=== PATIENT | female | born 1955 | race African-American/Black ===

== ENCOUNTER 2023-04-17 11:19 | Observation (INO) | payer OTHER ==
[2023-04-17] MEDS ORDERED: SODIUM CHLORIDE 0.9% 500 ML INFUS.BAG IV ONE (13:03)
[2023-04-17 13:17] LABS: HEMATOCRIT 32.7 % (32.4-45.2); HEMOGLOBIN 10.7 GM/dL (10.7-15.3); MCH 32.5 pg (25.7-33.7); MCHC 32.9 g/dl (32.0-36.0); MEAN CELL VOLUME 98.8 fl (80-96); MEAN PLT VOLUME 7.8 fl (7.5-11.1); PLATELET COUNT 423 10^3/uL (134-434); RDW 14.8 % (11.6-15.6); WHITE BLOOD COUNT 6.2 K/mm3 (4.0-10.0)
[2023-04-17 13:40] LABS: EPI CELLS 22 /uL (0-25.1); HYALINE CASTS 1 /uL (0-3.1); PH,URINE 6.5 (5.0-8.0); URINE APPEARANCE CLEAR; URINE BACTERIA 45 /uL (0-1359); URINE BILIRUBIN NEGATIVE (NEGATIVE); URINE COLOR YELLOW; URINE GLUCOSE (UA) NEGATIVE (NEGATIVE); URINE KETONE NEGATIVE (NEGATIVE); URINE LEUK ESTERASE TRACE (NEGATIVE); URINE NITRITE NEGATIVE (NEGATIVE); URINE PROTEIN NEGATIVE (NEGATIVE); URINE RBC 10 /uL (0-23.9); URINE UROBILINOGEN 0.2 mg/dL (0.2-1.0); URINE WBC 23 /uL (0-25.8)
[2023-04-17 13:48] LABS: POTASSIUM 4.8 mmol/L (3.5-5.1)
[2023-04-17 13:49] LABS: ALBUMIN 2.7 g/dl (3.4-5.0); BLOOD UREA NITROGEN 28.2 mg/dL (7-18); CALCIUM 9.2 mg/dL (8.5-10.1)
[2023-04-17 13:53] LABS: CREATININE 1.5 mg/dL (0.55-1.3)
[2023-04-17 13:54] LABS: BILIRUBIN,TOTAL 0.9 mg/dL (0.2-1); TOT PROT 8.4 g/dl (6.4-8.2)
[2023-04-17 13:57] LABS: N-TERMINAL BNP 593.3 pg/ml (5-125)
[2023-04-17 14:22] LABS: ANISOCYTOSIS 0; HELMET CELLS 0; HOWELL-JOLLY BODIES 0; MACROCYTOSIS 0; OVALOCYTE 0; ROULEAU 0; SICKELED CELLS 0; TARGET CELLS 0; TEAR DROP CELLS 0; TOXIC GRANULATION 0
[2023-04-17] MEDS ORDERED: MECLIZINE HCL 25 MG TABLET (FP) PO PRN (19:00)
[2023-04-17] MEDS ORDERED: SODIUM CHLORIDE 1,000 ML IV SCH (19:15)
[2023-04-17] MEDS ORDERED: PANTOPRAZOLE 20 MG TABLET PO ONE ×2 (20:32→20:33)
[2023-04-17] MEDS ORDERED: HEPARIN NA (PORCINE) 5,000 UNITS/ML 1ML VIAL ONE (20:33)
[2023-04-17] MEDS ORDERED: levETIRAcetam 500 MG TABLET (FP) PO ONE ×2 (20:33→20:35)
[2023-04-17] MEDS ORDERED: hydrALAZINE HCL 25 MG TABLET (FP) ONE (20:33)
[2023-04-17] MEDS: hydrALAZINE HCL 25 MG TABLET (FP) PO SCH (21:00)
[2023-04-17] MEDS: PANTOPRAZOLE 20 MG TABLET PO SCH (21:00)
[2023-04-17] MEDS: HEPARIN NA (PORCINE) 5,000 UNITS/ML 1ML VIAL SQ SCH (21:00)
[2023-04-17] MEDS: levETIRAcetam XR 500 MG TAB PO SCH (21:00)
[2023-04-17] MEDS: INSULIN (NOVOLOG) ASPART 100 UNITS/ML 10ML VIAL SQ SCH (22:24)
[2023-04-18] MEDS ORDERED: MELATONIN 1 MG TABLET PO PRN (01:06)
[2023-04-18] MEDS ORDERED: MELATONIN 5 MG TABLETS ONE (01:14)
[2023-04-18 05:34] VITALS: BMI 26.8
[2023-04-18] MEDS: HEPARIN NA (PORCINE) 5,000 UNITS/ML 1ML VIAL SQ SCH ×2 (06:10→13:49)
[2023-04-18] MEDS: INSULIN (NOVOLOG) ASPART 100 UNITS/ML 10ML VIAL SQ SCH ×2 (06:10→12:25)
[2023-04-18 07:31] LABS: HEMATOCRIT 29.2 % (32.4-45.2); HEMOGLOBIN 9.8 GM/dL (10.7-15.3); MCH 33.4 pg (25.7-33.7); MCHC 33.6 g/dl (32.0-36.0); MEAN CELL VOLUME 99.4 fl (80-96); MEAN PLT VOLUME 8.2 fl (7.5-11.1); PLATELET COUNT 382 10^3/uL (134-434); RBC 2.94 M/mm3 (3.60-5.2); RDW 14.4 % (11.6-15.6); WHITE BLOOD COUNT 6.2 K/mm3 (4.0-10.0)
[2023-04-18 07:57] LABS: POTASSIUM 4.1 mmol/L (3.5-5.1)
[2023-04-18 08:01] LABS: ALBUMIN 2.5 g/dl (3.4-5.0); BLOOD UREA NITROGEN 23.1 mg/dL (7-18); CALCIUM 9.1 mg/dL (8.5-10.1); MAGNESIUM 1.8 mg/dL (1.8-2.4)
[2023-04-18 08:04] LABS: CREATININE 1.3 mg/dL (0.55-1.3); PHOSPHOROUS 3.3 mg/dL (2.5-4.9)
[2023-04-18 08:05] LABS: BILIRUBIN,TOTAL 0.6 mg/dL (0.2-1); TOT PROT 7.4 g/dl (6.4-8.2)
[2023-04-18 09:34] LABS: ANISOCYTOSIS 1+; MACROCYTOSIS 0; TARGET CELLS 1+
[2023-04-18] MEDS: PANTOPRAZOLE 20 MG TABLET PO SCH (09:47)
[2023-04-18] MEDS: hydrALAZINE HCL 25 MG TABLET (FP) PO SCH (09:47)
[2023-04-18] MEDS ORDERED: LOSARTAN POTASSIUM 50 MG TABLET PO SCH (10:00)
[2023-04-18] MEDS: levETIRAcetam XR 500 MG TAB PO SCH (13:48)
[2023-04-18 15:31] VITALS: BP 185/94; PULSE 62; RESP 13; TEMP 98.3
== END 2023-04-18 16:20 | disposition home health service (06) ==
LOC: JER 11:19 → JERBED 22:49 → J4W 04-18 05:43
PROVIDERS: ADMIT Internal Medicine; ATTEND Internal Medicine
PROC: 3E0337Z Introduction of Electrolytic and Water Balance Substance into Peripheral Vein, Percutaneous Approach (ICD-10-PCS; principal; 2023-04-17)
DX: R42 Dizziness and giddiness (principal); R53.1 Weakness; I10 Essential (primary) hypertension; E11.9 Type 2 diabetes mellitus without complications; E78.5 Hyperlipidemia, unspecified; Z79.84 Long term (current) use of oral hypoglycemic drugs; M25.552 Pain in left hip; D72.10 Eosinophilia, unspecified; R74.01 Elevation of levels of liver transaminase levels; R79.89 Other specified abnormal findings of blood chemistry; R97.8 Other abnormal tumor markers; G40.909 Epilepsy, unspecified, not intractable, without status epilepticus
CPT/HCPCS: 0241U-QW; 36415; 70450-TC; 71045-TC-FY; 72170-TC-FY; 73502-TC-LT-FY; 80053; 81003; 82962; 83605; 83735; 83880; 84100; 84484; 85025; 86140; 87086; 87186; 93005; 93010; 97116-GP; 97162-GP; 99285-25; G0378; J1644

== ENCOUNTER 2023-07-25 09:06 | Emergency (ER) | payer OTHER, MEDICARE ==
[2023-07-25] MEDS ORDERED: LORATADINE 10 MG TABLET ONE (09:31)
[2023-07-25] MEDS ORDERED: ACETAMINOPHEN 500 MG TABLET (FP) ONE (09:31)
[2023-07-25] MEDS ORDERED: ALBUTEROL SO4 2.5/IPRATROPIUM 0.5 INH SOL 3 ML VIAL.NEB. NEB ONE (09:31)
[2023-07-25] MEDS: ACETAMINOPHEN 500 MG TABLET (FP) PO ONE (09:35)
[2023-07-25] MEDS: LORATADINE 10 MG TABLET PO ONE (09:35)
[2023-07-25] MEDS: ALBUTEROL SO4 2.5/IPRATROPIUM 0.5 INH SOL 3 ML VIAL.NEB. NEB ONE (09:38)
[2023-07-25 09:52] VITALS: BP 190/100; PULSE 80; RESP 17; TEMP 99; BMI 27.4
== END 2023-07-25 11:24 | disposition home or self-care (01) ==
LOC: FER 09:06
PROC: 3E0F7GC Introduction of Other Therapeutic Substance into Respiratory Tract, Via Natural or Artificial Opening (ICD-10-PCS; principal; 2023-07-25)
DX: R05.9 Cough, unspecified (principal); R09.81 Nasal congestion; R53.1 Weakness; Z20.822 Contact with and (suspected) exposure to COVID-19
CPT/HCPCS: 0241U-QW; 71046-TC-FY; 99284-25

== ENCOUNTER 2023-08-02 14:23 | Emergency (ER) | payer OTHER, MEDICARE ==
[2023-08-02 14:36] VITALS: BP 168/85; PULSE 76; RESP 18; TEMP 98; BMI 27.9
[2023-08-02] MEDS ORDERED: ACETAMINOPHEN INJECTION 100 ML IVPB ONE (16:14)
[2023-08-02] MEDS ORDERED: ONDANSETRON 4 MG/2 ML VIAL ONE (16:14)
[2023-08-02] MEDS: SODIUM CHLORIDE 0.9% 500 ML INFUS.BAG IV ONE (16:51)
[2023-08-02 16:52] LABS: BASO % 0.2 % (0-2.0); EOS % 2.3 % (0-4.5); HEMATOCRIT 31.4 % (32.4-45.2); HEMOGLOBIN 10.6 GM/dL (10.7-15.3); LYMPH % 11.2 % (8-40); MCH 33.4 pg (25.7-33.7); MCHC 33.8 g/dl (32.0-36.0); MEAN CELL VOLUME 98.9 fl (80-96); MEAN PLT VOLUME 8.2 fl (7.5-11.1); MONO % 8.3 % (3.8-10.2); PLATELET COUNT 387 10^3/uL (134-434); RBC 3.18 M/mm3 (3.60-5.2); RDW 14.1 % (11.6-15.6); WHITE BLOOD COUNT 8.7 K/mm3 (4.0-10.0)
[2023-08-02] MEDS: ONDANSETRON 4 MG/2 ML VIAL IVPUSH ONE (16:52)
[2023-08-02] MEDS: ACETAMINOPHEN 1000 MG/100 ML BAG IVPB ONE (16:52)
[2023-08-02] MEDS ORDERED: FAMOTIDINE 10 MG/ML VIAL IVPB ONE ×2 (17:09→17:10)
[2023-08-02 17:12] LABS: POTASSIUM 5.1 mmol/L (3.5-5.1)
[2023-08-02 17:14] LABS: CALCIUM 8.8 mg/dL (8.5-10.1)
[2023-08-02 17:15] LABS: ALBUMIN 2.6 g/dl (3.4-5.0); BLOOD UREA NITROGEN 18.8 mg/dL (7-18)
[2023-08-02 17:17] LABS: CREATININE 1.6 mg/dL (0.55-1.3)
[2023-08-02] MEDS: FAMOTIDINE 20 MG/50 ML IVPB 20 MG/50 ML MG IVPB ONE (17:17)
[2023-08-02 17:19] LABS: BILIRUBIN,TOTAL 0.8 mg/dL (0.2-1); TOT PROT 7.6 g/dl (6.4-8.2)
[2023-08-02 19:56] LABS: PH,URINE 6.5 (5.0-8.0); URINE APPEARANCE CLEAR; URINE BILIRUBIN NEGATIVE (NEGATIVE); URINE COLOR YELLOW; URINE GLUCOSE (UA) NEGATIVE (NEGATIVE); URINE KETONE NEGATIVE (NEGATIVE); URINE LEUK ESTERASE NEGATIVE (NEGATIVE); URINE NITRITE NEGATIVE (NEGATIVE); URINE PROTEIN TRACE (NEGATIVE)
[2023-08-02] MEDS ORDERED: MAG HYDROX/AL HYDROX/SIMETH 30 ML UNIT-DOSE CUP ONE (19:57)
[2023-08-02] MEDS: MAG HYDROX/AL HYDROX/SIMETH -MYLANTA- ORAL SUSPENSION PO ONE (20:00)
== END 2023-08-02 20:45 | disposition home or self-care (01) ==
LOC: JER 14:23
PROC: 3E033GC Introduction of Other Therapeutic Substance into Peripheral Vein, Percutaneous Approach (ICD-10-PCS; principal; 2023-08-02)
PROC: 3E030NZ Introduction of Analgesics, Hypnotics, Sedatives into Peripheral Vein, Open Approach (ICD-10-PCS; 2023-08-02)
PROC: 3E030GC Introduction of Other Therapeutic Substance into Peripheral Vein, Open Approach (ICD-10-PCS; 2023-08-02)
DX: R11.2 Nausea with vomiting, unspecified (principal); R10.84 Generalized abdominal pain; Z20.822 Contact with and (suspected) exposure to COVID-19
CPT/HCPCS: 0241U-QW; 36415; 71045-TC-FY; 74176-TC; 80053; 81003; 82962; 83605; 83690; 84484; 85025; 93005; 93010; 99285-25; J0131

== ENCOUNTER 2023-08-06 13:41 | Emergency (ER) | payer OTHER, MEDICARE ==
[2023-08-06 14:35] VITALS: RESP 18; TEMP 98.2; BMI 22.3
[2023-08-06] MEDS ORDERED: ACETAMINOPHEN INJECTION 100 ML IVPB ONE (15:07)
[2023-08-06] MEDS: ACETAMINOPHEN 1000 MG/100 ML BAG IVPB ONE (15:14)
[2023-08-06 15:20] LABS: HEMATOCRIT 30.4 % (32.4-45.2); HEMOGLOBIN 10.2 GM/dL (10.7-15.3); MCH 33.3 pg (25.7-33.7); MCHC 33.7 g/dl (32.0-36.0); PLATELET COUNT 351 10^3/uL (134-434); RBC 3.07 M/mm3 (3.60-5.2); RDW 13.9 % (11.6-15.6)
[2023-08-06 15:40] LABS: POTASSIUM 4.9 mmol/L (3.5-5.1)
[2023-08-06 15:42] LABS: ALBUMIN 2.8 g/dl (3.4-5.0); BLOOD UREA NITROGEN 23.4 mg/dL (7-18)
[2023-08-06 15:45] LABS: CREATININE 1.4 mg/dL (0.55-1.3)
[2023-08-06 15:47] LABS: BILIRUBIN,TOTAL 0.4 mg/dL (0.2-1); TOT PROT 7.7 g/dl (6.4-8.2)
[2023-08-06 17:59] VITALS: BP 162/84; PULSE 88
== END 2023-08-06 17:59 | disposition home or self-care (01) ==
LOC: JER 13:41
PROC: 3E033NZ Introduction of Analgesics, Hypnotics, Sedatives into Peripheral Vein, Percutaneous Approach (ICD-10-PCS; principal; 2023-08-06)
DX: G40.909 Epilepsy, unspecified, not intractable, without status epilepticus (principal); R47.81 Slurred speech
CPT/HCPCS: 36415; 70450-TC; 73502-TC-LT-FY; 80053; 85027; 99285-25; J0131

== ENCOUNTER 2024-01-07 04:10 | Day surgery (SDC) | payer OTHER, MEDICARE ==
[2024-01-03 14:55] VITALS: BMI 27.9
[2024-01-07 06:32] VITALS: TEMP 97.8
[2024-01-07] MEDS ORDERED: SUCCINYLCHOLINE CHLORIDE 200 MG/10 ML SYRINGE ONE (07:23)
[2024-01-07] MEDS ORDERED: SODIUM CHLORIDE 0.9% P/F 10 ML VIAL IJ ONE (07:24)
[2024-01-07] MEDS ORDERED: LIDOCAINE HCL/PF 2% SDV 5ML VIAL ONE (07:24)
[2024-01-07] MEDS ORDERED: PROPOFOL 40 ML ONE (07:25)
[2024-01-07] MEDS ORDERED: DEXAMETHASONE SOD PHOSPHATE 10 MG/1 ML VIAL ONE (07:31)
[2024-01-07] MEDS ORDERED: LIDOCAINE HCL/PF 1% SDV 5ML VIAL ONE (07:35)
[2024-01-07] MEDS ORDERED: BUPIVACAINE HCL/PF 0.25% (2.5MG/ML) 10 ML VIAL ONE (07:51)
[2024-01-07] MEDS ORDERED: MIDAZOLAM HCL 2 MG/2 ML SINGLE DOSE VIAL ONE (08:21)
[2024-01-07] MEDS ORDERED: ONDANSETRON 4 MG/2 ML VIAL ONE (08:42)
[2024-01-07] MEDS: LIDOCAINE HCL 1% PRESERVATIVE FREE - 30ML VIAL IJ ONE (08:50)
[2024-01-07] MEDS: IOHEXOL 180 MG/1 ML ML IJ ONE (08:53)
[2024-01-07] MEDS: BUPIVACAINE HCL/PF 0.25% (2.5MG/ML) 10 ML VIAL IJ ONE (08:56)
[2024-01-07] MEDS: DEXAMETHASONE SOD PHOSPHATE 10 MG/1 ML VIAL IM ONE (08:56)
[2024-01-07 09:10] VITALS: BP 122/67; PULSE 68; RESP 14
== END 2024-01-07 12:00 | disposition home or self-care (01) ==
LOC: JASU-SURG 04:10
PROVIDERS: ATTEND Physical Medicine & Rehabilitation
PROC: 3E0R3BZ Introduction of Anesthetic Agent into Spinal Canal, Percutaneous Approach (ICD-10-PCS; 2024-01-07)
PROC: 3E0R33Z Introduction of Anti-inflammatory into Spinal Canal, Percutaneous Approach (ICD-10-PCS; principal; 2024-01-07 08:00)
DX: M54.16 Radiculopathy, lumbar region (principal); M54.50 Low back pain, unspecified
CPT/HCPCS: 76000-TC-FY; J1100

== ENCOUNTER 2024-01-11 05:31 | Observation (INO) | payer OTHER, MEDICARE ==
[2024-01-11] MEDS: levETIRAcetam 500 MG/5 ML INJECTION VIAL IVPB ONE (06:44)
[2024-01-11] MEDS ORDERED: levETIRAcetam 500 MG/5 ML INJECTION VIAL IVPB ONE (06:45)
[2024-01-11] MEDS ORDERED: LOSARTAN POTASSIUM 50 MG TABLET ONE (07:24)
[2024-01-11] MEDS: LOSARTAN POTASSIUM 50 MG TABLET PO ONE (07:33)
[2024-01-11 07:42] LABS: INR 1.12 (0.83-1.09); PROTHROMBIN TIME (PATIENT) 12.6 SEC (9.7-13.0)
[2024-01-11 07:44] LABS: BASO % 0.3 % (0-2.0); HEMATOCRIT 30.7 % (32.4-45.2); HEMOGLOBIN 10.1 GM/dL (10.7-15.3); LYMPH % 41.2 % (8-40); MCH 32.6 pg (25.7-33.7); MEAN CELL VOLUME 98.5 fl (80-96); MEAN PLT VOLUME 8.5 fl (7.5-11.1); MONO % 17.2 % (3.8-10.2); NEUT % 37.3 % (42.8-82.8); PLATELET COUNT 442 10^3/uL (134-434); RBC 3.11 M/mm3 (3.60-5.2); RDW 15.2 % (11.6-15.6); WHITE BLOOD COUNT 8.3 K/mm3 (4.0-10.0)
[2024-01-11 07:45] LABS: ACTIVATED PTT 31.5 SECONDS (25.2-36.5)
[2024-01-11 07:58] LABS: POTASSIUM 4.6 mmol/L (3.5-5.1)
[2024-01-11 08:00] LABS: ALBUMIN 2.9 g/dl (3.4-5.0); BLOOD UREA NITROGEN 34.5 mg/dL (7-18); CALCIUM 9.1 mg/dL (8.5-10.1); MAGNESIUM 2.3 mg/dL (1.8-2.4)
[2024-01-11 08:03] LABS: CREATININE 1.6 mg/dL (0.55-1.3)
[2024-01-11 08:05] LABS: BILIRUBIN,TOTAL 0.4 mg/dL (0.2-1); TOT PROT 7.4 g/dl (6.4-8.2)
[2024-01-11 12:42] LABS: PH,URINE 6.5 (5.0-8.0); URINE APPEARANCE CLEAR; URINE BILIRUBIN NEGATIVE (NEGATIVE); URINE COLOR YELLOW; URINE GLUCOSE (UA) NEGATIVE (NEGATIVE); URINE KETONE NEGATIVE (NEGATIVE); URINE LEUK ESTERASE NEGATIVE (NEGATIVE); URINE NITRITE NEGATIVE (NEGATIVE); URINE PROTEIN NEGATIVE (NEGATIVE); URINE UROBILINOGEN 0.2 mg/dL (0.2-1.0)
[2024-01-11] MEDS ORDERED: ACETAMINOPHEN 500 MG TABLET (FP) PO PRN (14:16)
[2024-01-11] MEDS: ACETAMINOPHEN 325 MG TABLET (FP) PO PRN (16:29)
[2024-01-11 17:13] VITALS: BMI 29.3
[2024-01-11] MEDS: OXcarbazepine 300 MG TABLET (UD) PO SCH (21:48)
[2024-01-11] MEDS: CARVEDILOL 6.25 MG TABLET (FP) PO SCH (21:48)
[2024-01-11] MEDS: HEPARIN NA (PORCINE) 5,000 UNITS/ML 1ML VIAL SQ SCH (21:48)
[2024-01-11] MEDS ORDERED: levETIRAcetam XR 500 MG TAB PO SCH (22:00)
[2024-01-12 08:26] LABS: BASO % 1.3 % (0-2.0); EOS % 4.5 % (0-4.5); HEMATOCRIT 28.9 % (32.4-45.2); HEMOGLOBIN 9.9 GM/dL (10.7-15.3); LYMPH % 53.7 % (8-40); MCH 33.2 pg (25.7-33.7); MCHC 34.2 g/dl (32.0-36.0); MEAN PLT VOLUME 8.5 fl (7.5-11.1); MONO % 16.3 % (3.8-10.2); NEUT % 24.2 % (42.8-82.8); PLATELET COUNT 386 10^3/uL (134-434); RBC 2.98 M/mm3 (3.60-5.2); RDW 15.1 % (11.6-15.6); WHITE BLOOD COUNT 8.1 K/mm3 (4.0-10.0)
[2024-01-12 08:35] LABS: POTASSIUM 4.7 mmol/L (3.5-5.1)
[2024-01-12 08:38] LABS: ALBUMIN 2.5 g/dl (3.4-5.0); BLOOD UREA NITROGEN 29.6 mg/dL (7-18)
[2024-01-12 08:40] LABS: CALCIUM 8.6 mg/dL (8.5-10.1)
[2024-01-12 08:41] LABS: CREATININE 1.6 mg/dL (0.55-1.3)
[2024-01-12 08:42] LABS: BILIRUBIN,TOTAL 0.6 mg/dL (0.2-1); TOT PROT 6.8 g/dl (6.4-8.2)
[2024-01-12] MEDS: GABAPENTIN 100 MG CAPSULE PO SCH (09:37)
[2024-01-12] MEDS: FAMOTIDINE 20 MG TABLET PO SCH (09:37)
[2024-01-12] MEDS: LOSARTAN POTASSIUM 50 MG TABLET PO SCH (09:37)
[2024-01-12] MEDS: SPIRONOLACTONE 25 MG TABLET PO SCH (09:37)
[2024-01-12] MEDS: FOLIC ACID 1 MG TABLET (FP) PO SCH (09:38)
[2024-01-12] MEDS: FERROUS SO4 325 MG TABLET (FP) PO SCH (09:38)
[2024-01-13] MEDS: LOSARTAN POTASSIUM 50 MG TABLET PO SCH (09:40)
[2024-01-13] MEDS ORDERED: hydrALAZINE HCL 25 MG TABLET (FP) PO SCH ×2 (10:00→14:00)
[2024-01-13 11:24] VITALS: BP 180/82; PULSE 63; RESP 18; TEMP 97.3
[2024-01-13 14:43] LABS: POTASSIUM 4.6 mmol/L (3.5-5.1)
[2024-01-13 15:58] LABS: ALBUMIN 2.9 g/dl (3.4-5.0); BLOOD UREA NITROGEN 40.3 mg/dL (7-18); CALCIUM 9.8 mg/dL (8.5-10.1)
[2024-01-13 16:01] LABS: CREATININE 1.5 mg/dL (0.55-1.3)
[2024-01-13 16:03] LABS: BILIRUBIN,TOTAL 0.5 mg/dL (0.2-1); TOT PROT 7.4 g/dl (6.4-8.2)
== END 2024-01-13 14:01 | disposition home or self-care (01) ==
LOC: JER 05:31 → INTOOBSV 11:45 → JERBED 11:45 → J4W 12:37
PROVIDERS: ADMIT Internal Medicine; ATTEND Internal Medicine
PROC: 3E023GC Introduction of Other Therapeutic Substance into Muscle, Percutaneous Approach (ICD-10-PCS; principal; 2024-01-11)
PROC: 3E033GC Introduction of Other Therapeutic Substance into Peripheral Vein, Percutaneous Approach (ICD-10-PCS; 2024-01-11)
DX: I12.9 Hypertensive chronic kidney disease with stage 1 through stage 4 chronic kidney disease, or unspecified chronic kidney disease (principal); N18.9 Chronic kidney disease, unspecified; E11.9 Type 2 diabetes mellitus without complications; R56.9 Unspecified convulsions; R25.2 Cramp and spasm; G89.29 Other chronic pain; R74.01 Elevation of levels of liver transaminase levels; M54.50 Low back pain, unspecified; D64.9 Anemia, unspecified; K74.60 Unspecified cirrhosis of liver; Z86.19 Personal history of other infectious and parasitic diseases; Z87.891 Personal history of nicotine dependence; Z88.5 Allergy status to narcotic agent; Z88.0 Allergy status to penicillin; Z90.79 Acquired absence of other genital organ(s); Z90.49 Acquired absence of other specified parts of digestive tract
CPT/HCPCS: 0241U-QW; 36415; 70450-TC; 71045-TC-FY; 80053; 80177; 81003; 82962; 83605; 83735; 85025; 85610; 85730; 87086; 93005; 93010; 96372; 96374; 99285-25; G0378; J1644

== ENCOUNTER 2024-05-13 11:02 | Observation (INO) | payer OTHER, MEDICARE ==
[2024-05-13] MEDS ORDERED: ACETAMINOPHEN INJECTION 100 ML ONE (12:44)
[2024-05-13 12:50] LABS: HEMATOCRIT 30.6 % (32.4-45.2); HEMOGLOBIN 9.9 GM/dL (10.7-15.3); MCH 31.9 pg (25.7-33.7); MCHC 32.4 g/dl (32.0-36.0); MEAN CELL VOLUME 98.7 fl (80-96); MEAN PLT VOLUME 8.2 fl (7.5-11.1); PLATELET COUNT 390 10^3/uL (134-434); RDW 15.2 % (11.6-15.6); WHITE BLOOD COUNT 6.1 K/mm3 (4.0-10.0)
[2024-05-13] MEDS: ACETAMINOPHEN 1000 MG/100 ML BAG IVPB ONE ×2 (13:03→13:39)
[2024-05-13 13:08] LABS: POTASSIUM 5.6 mmol/L (3.5-5.1)
[2024-05-13 13:10] LABS: CALCIUM 9.1 mg/dL (8.5-10.1)
[2024-05-13 13:11] LABS: ALBUMIN 2.9 g/dl (3.4-5.0); BLOOD UREA NITROGEN 40.5 mg/dL (7-18)
[2024-05-13 13:14] LABS: CREATININE 1.9 mg/dL (0.55-1.3)
[2024-05-13 13:15] LABS: BILIRUBIN,TOTAL 0.4 mg/dL (0.2-1)
[2024-05-13 13:16] LABS: TOT PROT 7.2 g/dl (6.4-8.2)
[2024-05-13 13:34] LABS: ANISOCYTOSIS 0; MACROCYTOSIS 0; TARGET CELLS 0
[2024-05-13 14:05] LABS: HIV INTERPRETATION NEGATIVE (NEGATIVE)
[2024-05-13 14:06] LABS: PH,URINE 6.5 (5.0-8.0); URINE APPEARANCE CLEAR; URINE BILIRUBIN NEGATIVE (NEGATIVE); URINE COLOR YELLOW; URINE GLUCOSE (UA) NEGATIVE (NEGATIVE); URINE KETONE NEGATIVE (NEGATIVE); URINE LEUK ESTERASE NEGATIVE (NEGATIVE); URINE NITRITE NEGATIVE (NEGATIVE); URINE PROTEIN NEGATIVE (NEGATIVE); URINE UROBILINOGEN 0.2 mg/dL (0.2-1.0)
[2024-05-13] MEDS ORDERED: MORPHINE SULFATE 2 MG/ML SYRINGE ONE (15:39)
[2024-05-13] MEDS: morphine CARPU-JECT 2 MG/1 ML DISP.SYRIN IVPUSH ONE (15:48)
[2024-05-13] MEDS: ONDANSETRON 4 MG/2 ML VIAL IVPUSH ONE ×2 (15:49→21:06)
[2024-05-13] MEDS ORDERED: LORazepam 2 MG/ML SDV VIAL IVPUSH PRN (17:23)
[2024-05-13] MEDS ORDERED: GABAPENTIN 100 MG CAPSULE ONE (17:50)
[2024-05-13] MEDS: GABAPENTIN 100 MG CAPSULE PO PRN (17:52)
[2024-05-13] MEDS ORDERED: ONDANSETRON 4 MG/2 ML VIAL ONE (20:49)
[2024-05-13] MEDS: LOSARTAN POTASSIUM 50 MG TABLET PO SCH (22:05)
[2024-05-13] MEDS: hydrALAZINE HCL 25 MG TABLET (FP) PO SCH (22:05)
[2024-05-13] MEDS: PANTOPRAZOLE 20 MG TABLET PO SCH (22:05)
[2024-05-13] MEDS: levETIRAcetam 500 MG TABLET (FP) PO SCH (22:06)
[2024-05-13] MEDS: INSULIN ASPART SLIDING SCALE (NOVOLOG) 1 VIAL SQ SCH (22:06)
[2024-05-13] MEDS: CARVEDILOL 6.25 MG TABLET (FP) PO SCH (22:06)
[2024-05-13 22:41] VITALS: RESP 18; BMI 28.4
[2024-05-13] MEDS ORDERED: ONDANSETRON *ODT* 4 MG TABLET SL ONE (23:15)
[2024-05-14 09:15] LABS: HEMOGLOBIN 9.9 GM/dL (10.7-15.3); MCH 33.5 pg (25.7-33.7); MCHC 34.3 g/dl (32.0-36.0); MEAN CELL VOLUME 97.7 fl (80-96); MEAN PLT VOLUME 7.6 fl (7.5-11.1); PLATELET COUNT 389 10^3/uL (134-434); RBC 2.96 M/mm3 (3.60-5.2); RDW 15.1 % (11.6-15.6); WHITE BLOOD COUNT 5.9 K/mm3 (4.0-10.0)
[2024-05-14 09:34] LABS: POTASSIUM 5.2 mmol/L (3.5-5.1)
[2024-05-14 09:37] LABS: CALCIUM 9.1 mg/dL (8.5-10.1)
[2024-05-14 09:38] LABS: ALBUMIN 2.9 g/dl (3.4-5.0); BLOOD UREA NITROGEN 38.3 mg/dL (7-18); MAGNESIUM 2.3 mg/dL (1.8-2.4)
[2024-05-14 09:42] LABS: PHOSPHOROUS 3.8 mg/dL (2.5-4.9)
[2024-05-14 09:43] LABS: BILIRUBIN,TOTAL 0.5 mg/dL (0.2-1); TOT PROT 6.9 g/dl (6.4-8.2)
[2024-05-14] MEDS: SPIRONOLACTONE 25 MG TABLET PO SCH (09:45)
[2024-05-14] MEDS: FAMOTIDINE 20 MG TABLET PO SCH (09:46)
[2024-05-14] MEDS: ENOXAPARIN NA (PORCINE) 40 MG/0.4 ML DISP.SYRIN SQ SCH (09:46)
[2024-05-14] MEDS: FOLIC ACID 1 MG TABLET (FP) PO SCH (09:46)
[2024-05-14] MEDS: SODIUM CHLORIDE 500 ML IV STA (10:25)
[2024-05-14 14:38] VITALS: BP 117/64; PULSE 61; TEMP 97.9
== END 2024-05-14 17:58 | disposition home or self-care (01) ==
LOC: JER 11:02 → JERBED 18:33 → J6S 21:37
PROVIDERS: ADMIT Internal Medicine; ATTEND Internal Medicine
PROC: 3E033NZ Introduction of Analgesics, Hypnotics, Sedatives into Peripheral Vein, Percutaneous Approach (ICD-10-PCS; principal; 2024-05-13)
PROC: 3E023GC Introduction of Other Therapeutic Substance into Muscle, Percutaneous Approach (ICD-10-PCS; 2024-05-13)
PROC: 3E033GC Introduction of Other Therapeutic Substance into Peripheral Vein, Percutaneous Approach (ICD-10-PCS; 2024-05-13)
PROC: 3E0337Z Introduction of Electrolytic and Water Balance Substance into Peripheral Vein, Percutaneous Approach (ICD-10-PCS; 2024-05-13)
DX: R56.9 Unspecified convulsions (principal); E11.9 Type 2 diabetes mellitus without complications; I11.0 Hypertensive heart disease with heart failure; Z91.148 Patient's other noncompliance with medication regimen for other reason; D64.9 Anemia, unspecified
CPT/HCPCS: 36415; 70450-TC; 80053; 80177; 81003; 82550; 82962; 83735; 84100; 84484; 85025; 85027; 86803; 87389; 87522; 93005; 93010; 96361; 96372; 96374; 96375; 96376; 97116-GP; 97162-GP; 99285-25; G0378; J0131